=== PATIENT | male | born 1985 | race African-American/Black ===

== ENCOUNTER 2017-02-25 03:46 | Emergency (ER) | payer OTHER ==
[~2017-02-25] VITALS: Ht 180.3 cm; Wt 79.4 kg
--- NOTE | 2017-02-25 04:03 | NUR ---
PT CAME IN WITH C/O N/V AND DIARRHEA SINCE .UNABLE TO HOLD ANYTHING DOWN, STATES JUST GOT BACK FOR [place] 5 DAYS AGO, PT IS ALERT, ORIENTED X 4, NO RESP DISTRESS NOTED OR REPORTED UPON ASSESSMENT... MD AT BEDSIDE...
[2017-02-25] MEDS ORDERED: ONDANSETRON 4 MG/2 ML VIAL IV ONE (04:30)
[2017-02-25] MEDS ORDERED: DICYCLOMINE HCL 20 MG/2 ML AMPUL IM SCH (04:30)
[2017-02-25] MEDS ORDERED: IV NORMAL SALINE 1000 ML BAG IV ONE (04:30)
[2017-02-25 04:37] LABS: BASOPHILS % (AUTO) 0.5 % (0.0-2.0); EOSINOPHILS # (AUTO) 0.2 K/uL (0.0-0.7); EOSINOPHILS % (AUTO) 4.3 % (0.0-7.0); HEMATOCRIT 40.5 % (36.7-47.1); HEMOGLOBIN 14.1 g/dL (12.5-16.3); LYMPHOCYTES # (AUTO) 1.5 K/uL (20.0-40.0); LYMPHOCYTES % (AUTO) 29.1 % (20.5-51.5); MEAN CORPUSCULAR HGB CONC 35 g/dL (32.5-36.3); MEAN CORPUSCULAR VOLUME 88.7 fL (73.0-96.2); MONOCYTES # (AUTO) 0.4 K/uL (2.0-10.0); MONOCYTES % (AUTO) 7.1 % (0.0-11.0); NEUTROPHILS # (AUTO) 2.9 K/uL (1.8-8.9); PLATELET COUNT (AUTO) 341 K/uL (152-348); RED BLOOD CELL COUNT(AUTO) 4.57 MIL/uL (4.06-5.63)
[2017-02-25] MEDS ORDERED: ONDANSETRON 4 MG/2 ML VIAL ONE (04:43)
[2017-02-25] MEDS ORDERED: DICYCLOMINE HCL 10 MG/5 ML UDC LIQ ONE (04:44)
[2017-02-25 04:45] LABS: ALBUMIN 4.2 g/dL (3.4-5.0); BILIRUBIN,DIRECT 0.1 mg/dL (0.0-0.2); BILIRUBIN,TOTAL 0.4 mg/dL (0.2-1.0); CALCIUM 8.8 mg/dL (8.5-10.1); CREATININE 1.1 mg/dL (0.6-1.3); POTASSIUM 3.9 mmol/L (3.5-5.1)
--- NOTE | 2017-02-25 05:00 | NUR ---
PT CONTINUES RESTING IN BED, NAUSEA AND VOMITING HAVE CEASED, PT WANTS TO WAIT A COUPLE MORE MINUTES PRIOR TO TAKING PO MEDICATION....GAVE WATER, ADVISED TO TAKE SAME SIPS OF WATER TO SEE IF HE COULD KEEP WATER DOWN...
[2017-02-25] MEDS ORDERED: DICYCLOMINE HCL 10 MG/5 ML UDC LIQ PO ONE (05:30)
--- NOTE | 2017-02-25 05:30 | NUR ---
PT STATES ABLE TO KEEP WATER DOWN WITH NO C/O NAUSEA OR VOMITING, GAVE PO MEDICATION...
--- NOTE | 2017-02-25 06:01 | NUR ---
Patient discharged to home in stable conditon. Written and verbal after care instructions given. Patient verbalizes understanding of instructions. Pt walked out of ER unassisted with belongings at side...
== END 2017-02-25 06:04 | disposition home or self-care (01) ==
LOC: ER 03:48
DX: R19.7 Diarrhea, unspecified (principal); R11.2 Nausea with vomiting, unspecified
CPT/HCPCS: 36415; 83690; 85025; A4663; J2405; J7030

== ENCOUNTER 2017-06-13 13:05 | Emergency (ER) | payer OTHER ==
[~2017-06-13] VITALS: Ht 180.3 cm; Wt 79.4 kg
--- NOTE | 2017-06-13 13:30 | NUR ---
PT IN RM AWAITING MSE.
[2017-06-13] MEDS ORDERED: KETOROLAC TROMETHAMINE 15 MG INJ IV ONE (14:15)
[2017-06-13] MEDS ORDERED: KETOROLAC TROMETHAMINE 15 MG INJ ONE ×2 (14:25→14:30)
[2017-06-13 14:33] LABS: *BILIRUBIN,URIN NEGATIVE (NEGATIVE); *BLOOD, URINE NEGATIVE (NEGATIVE); *CLARITY,URINE CLEAR (CLEAR); *COLOR,URINE YELLOW (YELLOW); *KETONES,URINE NEGATIVE (NEGATIVE); *PROTEIN,URINE NEGATIVE (NEGATIVE); *UROBILINOGEN,URINE 0.2 E.U./dl (NORMAL); LEUKOCYTE ESTERASE ,URINE NEGATIVE (NEGATIVE); NITRITE, URINE NEGATIVE (NEGATIVE); UGLUCOSE NEGATIVE (NEGATIVE)
--- NOTE | 2017-06-13 14:38 | NUR ---
SALINE LOPCK/EKG/CXR/LABS/URINE COMPLETEED EARLIER, PRESENTLY PT HAVING LINDSEY DONE.
[2017-06-13 14:39] LABS: BASOPHILS % (AUTO) 0.7 % (0.0-2.0); EOSINOPHILS # (AUTO) 0.3 K/uL (0.0-0.7); EOSINOPHILS % (AUTO) 3.8 % (0.0-7.0); HEMOGLOBIN 13.8 G/DL (14.0-18.0); LYMPHOCYTES # (AUTO) 1.9 K/UL (0.8-4.8); LYMPHOCYTES % (AUTO) 26.9 % (20.5-51.5); MEAN CORPUSCULAR HEMOGLOBIN 30.2 UUG (27.0-31.0); MEAN CORPUSCULAR HGB CONC 34 g/dL (32.0-37.0); MEAN CORPUSCULAR VOLUME 89.9 FL (82.0-92.0); MONOCYTES # (AUTO) 0.5 K/UL (0.1-1.30); MONOCYTES % (AUTO) 6.7 % (0.0-11.0); NEUTROPHILS # (AUTO) 4.4 K/UL (1.8-8.9); NEUTROPHILS % (AUTO) 61.9 % (38.5-71.5); PLATELET COUNT (AUTO) 358 K/UL (150-450); RED BLOOD CELL COUNT(AUTO) 4.56 MIL/UL (4.7-6.1); WHITE BLOOD COUNT (AUTO) 7.1 K/UL (4.0-11.2)
[2017-06-13 14:41] LABS: CREATININE 1.2 mg/dL (0.6-1.3); POTASSIUM 3.8 mmol/L (3.5-5.1)
[2017-06-13 14:47] LABS: SQUAMOUS EPITHELIAL CELL,UR FEW /HPF (NONE SEEN); WBC,URINE 0-3 /HPF (0-3)
[2017-06-13 15:00] LABS: BILIRUBIN,DIRECT 0.1 mg/dL (0.0-0.2); BILIRUBIN,TOTAL 0.4 mg/dL (0.2-1.0); TOTAL PROTEIN, SERUM 8.9 g/dL (6.4-8.2)
[2017-06-13] MEDS ORDERED: IV NORMAL SALINE 1000 ML BAG IV ONE (15:30)
[2017-06-13] MEDS ORDERED: NORMAL SALINE FLUSH 10 ML DISP.SYRIN ONE (16:17)
[2017-06-13] MEDS ORDERED: IOHEXOL 350 100 ML INFUS..BTL ONE (16:17)
[2017-06-13] MEDS ORDERED: IV NORMAL SALINE 250 ML IV ONE (16:17)
--- NOTE | 2017-06-13 16:18 | NUR ---
PT TO CT SCAN. GABRIEL MCKENZIE SIGNED. PT HAD A 20G SALINE LOCK OPLACED TO RT AC.
--- NOTE | 2017-06-13 16:39 | NUR ---
PT RETURNED FROM CT, PT POSITIONED FOR COMFORT.
--- NOTE | 2017-06-13 17:00 | NUR ---
IV D/C'D X 2 INTQACT, MSE COMPLETED, PT D/C'D HOME, ACI/RX X2 GIVEN. PT GOT DRESSED A,D AMBULATED W/O DIFF/TOOK ALL BELONGINGS.
[2017-06-13 17:02] VITALS: BP 139/84
== END 2017-06-13 17:02 | disposition home or self-care (01) ==
LOC: ER 13:05
DX: R07.89 Other chest pain (principal); R10.13 Epigastric pain; R10.11 Right upper quadrant pain
CPT/HCPCS: 36415; 71010; 71275; 76705; 80048; 80076; 81001; 83690; 84484; 85025; 85379; 85730; 93005; 96361; 96374; 99291; A4663; J1885; J3490; J7030; J7050; Q9967; 70030-TC

== ENCOUNTER 2017-06-22 19:17 | Emergency (ER) | payer OTHER ==
[~2017-06-22] VITALS: Ht 180.3 cm; Wt 79.4 kg
[2017-06-22] MEDS ORDERED: IBUPROFEN 800 MG TABLET PO ONE (21:30)
[2017-06-22] MEDS ORDERED: IBUPROFEN 800 MG TABLET ONE (21:39)
--- NOTE | 2017-06-22 22:41 | NUR ---
Patient discharged to home in stable conditon. Written and verbal after care instructions given. Patient verbalizes understanding of instructions.
== END 2017-06-22 22:44 | disposition home or self-care (01) ==
LOC: ER 19:19
DX: S13.4XXA Sprain of ligaments of cervical spine, initial encounter (principal); S09.90XA Unspecified injury of head, initial encounter; V43.92XA Unspecified car occupant injured in collision with other type car in traffic accident, initial encounter; Y93.89 Activity, other specified; Y92.413 State road as the place of occurrence of the external cause; Y99.9 Unspecified external cause status
CPT/HCPCS: 70450; 72125; 99284; A4663

== ENCOUNTER 2017-10-19 05:38 | Emergency (ER) | payer OTHER ==
[~2017-10-19] VITALS: Ht 180.3 cm; Wt 77.1 kg
--- NOTE | 2017-10-19 05:40 | NUR ---
Pt is received alert, responsive as he came in c/o Left Knee pain radiating down to foot with s/p Cortisonein jection in neck on . His care continue as awaits MD orders.
[2017-10-19] MEDS ORDERED: vimovo (05:49)
--- NOTE | 2017-10-19 06:38 | NUR ---
Pt remain alert, responsive as call light in reach and fall precautions in place as he is monitor and assisted as needed.
[2017-10-19] MEDS ORDERED: HYDROCODONE/APAP 5-325MG TABLET PO ONE (07:00)
[2017-10-19] MEDS ORDERED: KETOROLAC TROMETHAMINE 60 MG INJ IM ONE ×2 (07:01→07:28)
--- NOTE | 2017-10-19 07:08 | NUR ---
Pt remain alert, responsive as report is given to the AM receiving nurse as news orders noted.
--- NOTE | 2017-10-19 07:18 | NUR ---
Pt remain alert, responsive as he is been medicated with [place] 5mg/325mg po and Toradol 60mg IM. His care continue.
[2017-10-19] MEDS ORDERED: HYDROCODONE/APAP 5-325MG TABLET ONE (07:29)
[2017-10-19 07:42] LABS: BASOPHILS # (AUTO) 0.1 K/uL (0.0-8.0); BASOPHILS % (AUTO) 0.6 % (0.0-2.0); EOSINOPHILS % (AUTO) 0.1 % (0.0-7.0); HEMATOCRIT 39.4 % (36.7-47.1); HEMOGLOBIN 13.6 g/dL (12.5-16.3); LYMPHOCYTES # (AUTO) 1.8 K/uL (20.0-40.0); LYMPHOCYTES % (AUTO) 21.6 % (20.5-51.5); MEAN CORPUSCULAR HEMOGLOBIN 31.2 uug (23.8-33.4); MEAN CORPUSCULAR HGB CONC 35 g/dL (32.5-36.3); MEAN CORPUSCULAR VOLUME 90.3 fL (73.0-96.2); MONOCYTES # (AUTO) 0.7 K/uL (2.0-10.0); MONOCYTES % (AUTO) 7.8 % (0.0-11.0); NEUTROPHILS # (AUTO) 5.9 K/uL (1.8-8.9); NEUTROPHILS % (AUTO) 69.9 % (38.5-71.5); PLATELET COUNT (AUTO) 371 K/uL (152-348); RED BLOOD CELL COUNT(AUTO) 4.37 MIL/uL (4.06-5.63); WHITE BLOOD COUNT (AUTO) 8.5 K/uL (3.6-10.2)
[2017-10-19 07:50] LABS: CREATININE 1.3 mg/dL (0.6-1.3)
[2017-10-19 07:57] LABS: BILIRUBIN,TOTAL 0.6 mg/dL (0.2-1.0); TOTAL PROTEIN, SERUM 8.3 g/dL (6.4-8.2)
--- NOTE | 2017-10-19 10:31 | NUR ---
pt was d/c to home. d/c instructions given to the pt.
[2017-10-19 10:32] VITALS: BP 136/77
== END 2017-10-19 10:34 | disposition home or self-care (01) ==
LOC: ER 05:45
DX: S93.402A Sprain of unspecified ligament of left ankle, initial encounter (principal); M79.604 Pain in right leg; M79.605 Pain in left leg; X50.0XXA Overexertion from strenuous movement or load, initial encounter; Y93.89 Activity, other specified; Y92.89 Other specified places as the place of occurrence of the external cause; Y99.8 Other external cause status
CPT/HCPCS: 36415; 73600; 73620; 85025; 85651; A4663; J1885